=== PATIENT | female | born 1945 | race Caucasian/White ===

== ENCOUNTER 2016-09-03 06:04 | Emergency (ER) | payer OTHER ==
[~2016-09-03] VITALS: Ht 170.2 cm; Wt 72.6 kg
[~2016-09-03 06:04] MED LIST: ADVAIR HFA 230-12 GM PO; AUGMENTIN 875-1 EACH PO; FLUTICASON0.05 MG/A2 NAS; IPRATROPIU0.2 MG/1 M INH/SOL; NYSTATIN100000 U/M PO; PREDNISONE 10MG10 M1 PO; PREDNISONE10 M2 PO; PREDNISONE10 MG PO; PROAIR HFA8.5 GM INH; SYMBICORT 160/41 PUF INH; TUDORZA PR400 MCG/Ac INH; ZITHROMAX Z-PA250 M1 PO
[2016-09-03 06:29] LABS: ABSOLUTE BASOPHIL COUNT 0.1 /CUMM (0.0-0.2); ABSOLUTE EOSINOPHIL COUNT 0.1 /CUMM (0.0-0.7); ABSOLUTE GRANULOCYTE CT 3.9 /CUMM (1.4-6.5); ABSOLUTE LYMPH COUNT 2.9 /CUMM (1.2-3.4); ABSOLUTE MONOCYTE COUNT 0.6 /CUMM (0.10-0.60); BASOPHIL % 1.1 % (0.0-2.0); EOSINOPHIL % 1.9 % (0-5); GRANULOCYTE % 50.9 % (42.2-75.2); HEMATOCRIT 43.8 % (37-47); MEAN CORPUSCULAR HGB 31.4 PG (27.0-31.0); MEAN CORPUSCULAR HGB CONC 32.8 G/DL (33.0-37.0); MEAN CORPUSCULAR VOLUME 95.8 FL (81.0-99.0); MEAN PLATELET VOLUME 8.5 FL (7.4-10.4); PLATELET COUNT 355 /CUMM (130-400); RBC DISTRIBUTION WIDTH 13.6 % (11.5-14.5); RED BLOOD CELL CT 4.57 /CUMM (4.20-5.40); WHITE BLOOD CELL COUNT 7.7 /CUMM (4.8-10.8)
--- NOTE | 2016-09-03 06:59 | ED CARDIAC/CP/PALPITATIONS ---
History of Present Illness General Chief Complaint: Chest Pain Stated Complaint: CHEST AND SHOULDER PAIN Source: patient, old records Exam Limitations: no limitations Vital Signs & Intake/Output Vital Signs & Intake/Output Vital Signs Date Time Temp Pulse Resp B/P Pulse O2 O2 Flow FiO2 Ox Delivery Rate 09/03 1142 77 18 127/62 95 Room Air 09/03 0955 97.1 77 20 129/64 93 Room Air Room Air 09/03 0820 68 18 130/78 97 Room Air 09/03 0619 100 Room Air 09/03 0616 97.2 65 16 155/71 98 Room Air Allergies Coded Allergies: NO KNOWN ALLERGIES (12/15/11) Reconcile Medications Aclidinium [place] (Tudorza Pressair) 400 MCG/ACTUATION AER.POW.BA 1 PUFF INH DAILY COPD (Reported) Albuterol Sulfate (Proair Hfa) 8.5 GM HFA.AER.AD 2 PUF INH Q4-6 PRN PRN BREATHING PROBLEMS (Reported) Amoxicillin/Potassium Clav (Augmentin 875-125 Tablet) 1 EACH TABLET 1 TAB PO BID COPD EXACERBATION Budesonide/Formoterol Fumara (Symbicort 160-4.5 Mcg Inhaler) 160 MCG/4.5 MCG PUF 2 PUF INH BID COPD (Reported) Fluticasone Propionate/Salme (Advair Hfa 230-21 Mcg Inhaler) 12 GM HFA.AER.AD 1 PUFF PO BID BREATHING PROBLEMS (Reported) Ipratropium [place] 0.2 MG/1 ML SOLUTION 1 Vial INH/LENO 4 TIMES/DAY COPD Prednisone 10 MG TABLET 1 TAB PO DAILY COPD EXACERBATION TAKE 4 TABS FOR 3 DAYS THEN TAKE 3 TABS FOR 3 DAYS THEN TAKE 2 TABS FOR 3 DAYS THEN TAKE 1 TAB FOR 3 DAYS Triage Note: PT FROM HOME C/O CP. PT STATES SHE HAS HAD CP FOR THE PAST 3 DAYS UNDER LEFT BREAST, THE PAIN IS INTERMITTENT AND DOES NOT RADIATE ANYWHERE. PT DENIES N/V/D, DENIES BILATERAL ARM NUMBNESS/TINGLING/ DENIES JAW OR BACK PAIN. IV ACCESS ESTABLISHED BY THIS RN LAC #[id number], LABS DRAWN AND SENT (LAV, SST, BLUE, HARPER). AWAITING PROVIDER EVAL Triage Nurses Notes Reviewed? yes HPI: Patient presents for evaluation of the bilateral lower chest pain that has been intermittent over the past 2 days. Patient states that it began while she was lying in bed. She describes it as occasionally dull and at other times sharp. Last night she began having "needles" across the top of her left shoulder. She denies chest pain or shoulder pain currently. She admits to having 2 brief episodes of chest pain here in the emergency department. She had chills yesterday but otherwise denies fever or cold symptoms. She states she has a chronic productive cough secondary to smoking. There has been no acute change in her phlegm production. She denies leg pain, leg swelling or recent travel. She is a one pack per day smoker. (MAIA LUNDBERG,PATRIA Florez) Past History Travel History Traveled to [place] past 21 day No Medical History Any Pertinent Medical History? see below for history Neurological: NONE EENT: NONE Cardiovascular: NONE Respiratory: COPD Gastrointestinal: NONE Hepatic: NONE Renal: NONE Musculoskeletal: NONE Psychiatric: NONE Endocrine: NONE Blood Disorders: NONE History of MRSA: No History of VRE: No History of CDIFF: No Surgical History Surgical History: non-contributory Psychosocial History Who do you live with Patient/Self Services at Home None What is your primary language Bel[place]ian Family History Family History, If Any: No Known Family History. Hx Contributory? No (PATRIA CARVALHO MD) Review of Systems Review of Systems Constitutional: Reports: no symptoms. EENTM: Reports: no symptoms. Respiratory: Reports: no symptoms. Cardiovascular: Reports: see HPI. GI: Reports: no symptoms. Genitourinary: Reports: no symptoms. Musculoskeletal: Reports: no symptoms. Skin: Reports: no symptoms. Neurological/Psychological: Reports: no symptoms. Hematologic/Endocrine: Reports: no symptoms. Immunologic/Allergic: Reports: no symptoms. All Other Systems: Reviewed and Negative (PATRIA CARVALHO MD) Physical Exam Physical Exam Cardiovascular: SEE BELOW Comments: Gen.: Well-nourished, well-developed, no acute respiratory distress. Head: Normocephalic, atraumatic. Eyes: Normal inspection bilaterally Ears: Normal inspection bilaterally Nose: Normal inspection Throat/mouth : Moist mucosa Neck: Supple, full range of motion, no goiter Heart: Regular rate and rhythm, no murmurs rubs or gallops Lungs: Clear to auscultation bilaterally with normal air entry Chest: Mild left chest tenderness that does not reproduce the pain of the chief complaint Back: Normal range of motion Abdomen: Soft, nontender, nondistended, normal bowel sounds Extremities: Normal range of motion grossly, equal radial pulses, no cyanosis clubbing or edema Neurologic: Cranial nerves grossly intact, speech is clear Skin: warm and dry Psychiatric: Calm, cooperative, no apparent delusions or hallucinations Core Measures Severe Sepsis Present: No Septic Shock Present: No (MAIA LUNDBERG,PATRIA Florez) Core Measures ACS in differential dx? Yes ASA ordered for poss ACS? No-ACS ruled out (TASH LUNDBERG,EMILY Goins) Progress Differential Diagnosis: unstable angina, ACUTE mi, MUSCULOSKELETAL PAIN Plan of Care: Orders Procedure Date/time Status Regular Diet 09/03 L Active TROPONIN LEVEL 09/03 1034 Complete EKG 09/03 1034 Active Telemetry/Customer Associate 09/03 06 Active TROPONIN LEVEL 09/03 0619 Complete MAGNESIUM 09/03 06 Complete CBC WITHOUT DIFFERENTIAL 09/03 618 Complete BASIC METABOLIC PANEL 09/03 618 Complete EKG 09/03 0606 Active Laboratory Tests 09/03/16 1056: Troponin I < 0.01 09/03/16 0620: Anion Gap 13, Estimated GFR > 60, BUN/Creatinine Ratio 15.6, Glucose 89, Calcium 10.0, Magnesium 2.0, Troponin I < 0.01, CBC w Diff NO MAN DIFF REQ, RBC 4.57, MCV 95.8, MCH 31.4 H, RDW 13.6, MPV 8.5, Gran % 50.9, Lymphocytes % 38.1, Monocytes % 8.0, Eosinophils % 1.9, Basophils % 1.1, Absolute Granulocytes 3.9, Absolute Lymphocytes 2.9, Absolute Monocytes 0.6, Absolute Eosinophils 0.1, Absolute Basophils 0.1, PUBS MCHC 32.8 L Initial ED EKG: NSR, rate (61), no ST T wave changes Prior EKG: unchanged Comments: 09/03/2016 7:18:05 AM 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 (MAIA LUNDBERG,PATRIA Florez) Departure Departure Condition: Stable Clinical Impression Primary Impression: Chest pain Qualifiers: Chest pain type: unspecified Qualified Code: R07.9 - Chest pain, unspecified Departure Forms: Customer Survey General Discharge Information (PATRIA CARVALHO MD) Departure Disposition: HOME OR SELF CARE Referrals: UNKNOWN (PCP/Family) BERTRAM LUU MD Additional Instructions: Follow-up with Dr. Luu. Return if symptoms worsen or for any concerns. (TASH LUNDBERG,EMILY Goins) Critical Care Note Critical Care Note Critical Care Time: non-applicable (TASH LUNDBERG,EMILY Goins)
--- NOTE | 2016-09-03 07:21 | RADIOLOGY REPORT ---
EXAMINATION: XR PORTABLE CHEST CLINICAL INFORMATION: Chest pain. COMPARISON: Chest x-ray 11/21/2015. TECHNIQUE: Portable AP view of the chest was obtained. FINDINGS: Both lungs are well-expanded and clear acute process. The heart size and pulmonary vascularity is normal. No gross bony abnormality seen. IMPRESSION: Unremarkable chest examination.
[2016-09-03 11:42] VITALS: BP 127/62
== END 2016-09-03 12:26 ==
LOC: ERH 06:04
PROVIDERS: Emergency Medicine
DX: R07.9 Chest pain, unspecified (principal)
CPT/HCPCS: 93005; 93010